=== PATIENT | male | born 1985 | race Caucasian/White ===

== ENCOUNTER → 2016-05-31 | Outpatient (CLI) | payer OTHER | LOC: MW.MNT 14:05 | CPT/HCPCS: 97802 ==

== ENCOUNTER → 2016-06-29 | Outpatient (CLI) | payer OTHER | LOC: MW.MNT 08:53 | PROVIDERS: ATTEND Nurse Practitioner | DX: Z71.3 Dietary counseling and surveillance (principal); E66.9 Obesity, unspecified; Z68.41 Body mass index [BMI] 40.0-44.9, adult | CPT/HCPCS: 97802 ==

== ENCOUNTER → 2016-07-29 | Outpatient (CLI) | payer OTHER | LOC: MW.MNT 08:56 | PROVIDERS: ATTEND Surgery | DX: Z71.3 Dietary counseling and surveillance (principal) | CPT/HCPCS: 97802 ==